=== PATIENT | female | born 1935 | race Caucasian/White ===

== ENCOUNTER 2024-02-07 09:14 | Inpatient (IN) | payer OTHER, BC ==
[2024-02-07 09:33] VITALS: BMI 24.0
[2024-02-07 10:45] LABS: BASO % 0.5 % (0-2.0); EOS % 0.8 % (0-4.5); HEMOGLOBIN 13.2 GM/dL (10.7-15.3); LYMPH % 10.9 % (8-40); MCH 30.9 pg (25.7-33.7); MCHC 32.1 g/dl (32.0-36.0); MEAN PLT VOLUME 8.6 fl (7.5-11.1); MONO % 8.3 % (3.8-10.2); NEUT % 79.5 % (42.8-82.8); PLATELET COUNT 183 10^3/uL (134-434); RBC 4.27 M/mm3 (3.60-5.2); RDW 14.2 % (11.6-15.6); WHITE BLOOD COUNT 7.6 K/mm3 (4.0-10.0)
[2024-02-07 10:49] LABS: INR 1.04 (0.83-1.09); PROTHROMBIN TIME (PATIENT) 12.1 SEC (9.7-13.0)
[2024-02-07 10:51] LABS: ACTIVATED PTT 30.3 SECONDS (25.2-36.5)
[2024-02-07 10:59] LABS: POTASSIUM 3.8 mmol/L (3.5-5.1)
[2024-02-07 11:01] LABS: CALCIUM 9.3 mg/dL (8.5-10.1)
[2024-02-07 11:02] LABS: ALBUMIN 3.7 g/dl (3.4-5.0); BLOOD UREA NITROGEN 22.1 mg/dL (7-18)
[2024-02-07 11:05] LABS: CREATININE 0.9 mg/dL (0.55-1.3)
[2024-02-07 11:06] LABS: BILIRUBIN,TOTAL 0.6 mg/dL (0.2-1); TOT PROT 6.7 g/dl (6.4-8.2)
[2024-02-07] MEDS ORDERED: ACETAMINOPHEN INJECTION 100 ML IVPB ONE (11:12)
[2024-02-07] MEDS: ACETAMINOPHEN 1000 MG/100 ML BAG IVPB ONE (11:12)
[2024-02-07] MEDS: morphine CARPU-JECT 2 MG/1 ML DISP.SYRIN IVPUSH ONE (14:06)
[2024-02-07 16:16] LABS: N-TERMINAL BNP 549.7 pg/ml (5-450)
[2024-02-07] MEDS: LORazepam 2 MG/ML SDV VIAL IVPUSH ONE (18:28)
[2024-02-07] MEDS: PANTOPRAZOLE 40 MG TABLET PO SCH (18:28)
[2024-02-07] MEDS: CARBIDOPA/LEVODOPA 25/100 TABLET (FP) PO SCH (18:28)
[2024-02-07] MEDS: D5-1/2NS+10 MEQ KCL - 10 MEQ/1,000 ML INFUS.BAG IV SCH (18:28)
[2024-02-07] MEDS: traMADol HCL 50 MG TABLET PO PRN (18:28)
[2024-02-07] MEDS: INSULIN ASPART SLIDING SCALE (NOVOLOG) 1 VIAL SQ SCH (18:31)
[2024-02-07] MEDS: PNEUMOC 20-VAL CONJ-DIP CRM/PF 0.5 ML SYRINGE IM ONE (21:28)
[2024-02-07] MEDS: SACUBITRIL/VALSARTAN 97 MG-103 MG TABLET PO SCH (21:30)
[2024-02-07] MEDS: ATORVASTATIN CA 20 MG TABLET (FP) PO SCH (21:31)
[2024-02-07] MEDS: QUEtiapine FUMARATE 25 MG TABLET PO SCH (21:31)
[2024-02-07] MEDS: POLYETHYLENE GLYCOL (HEALTHYLAX) 3350 17 GM PACKET PO SCH (21:31)
[2024-02-07] MEDS: CARVEDILOL 12.5 MG TABLET (FP) PO SCH (21:31)
[2024-02-07] MEDS: DONEPEZIL HCL 5 MG TABLET (FP) PO SCH (21:31)
[2024-02-07] MEDS: DOCUSATE SODIUM 100 MG CAPSULE (FP) PO SCH (21:31)
[2024-02-07] MEDS ORDERED: CARVEDILOL 25 MG TABLET (FP) PO SCH (22:00)
[2024-02-07] MEDS ORDERED: CARBIDOPA/LEVODOPA 25/100 TABLET (FP) PO SCH (22:00)
[2024-02-07] MEDS ORDERED: CARVEDILOL 6.25 MG TABLET (FP) PO SCH ×2 (22:00)
[2024-02-08 08:58] LABS: BASO % 0.4 % (0-2.0); EOS % 1.5 % (0-4.5); HEMATOCRIT 38.1 % (32.4-45.2); HEMOGLOBIN 12.4 GM/dL (10.7-15.3); LYMPH % 9.5 % (8-40); MCH 31.3 pg (25.7-33.7); MCHC 32.5 g/dl (32.0-36.0); MEAN CELL VOLUME 96.3 fl (80-96); MEAN PLT VOLUME 8.5 fl (7.5-11.1); MONO % 11.3 % (3.8-10.2); NEUT % 77.3 % (42.8-82.8); PLATELET COUNT 160 10^3/uL (134-434); RBC 3.96 M/mm3 (3.60-5.2); RDW 14.2 % (11.6-15.6); WHITE BLOOD COUNT 7.9 K/mm3 (4.0-10.0)
[2024-02-08] MEDS: CHOLECALCIFEROL (VIT D3) 1,000 UNIT (25 MCG) TABLET PO SCH (09:14)
[2024-02-08 09:16] LABS: POTASSIUM 4.3 mmol/L (3.5-5.1)
[2024-02-08 09:25] LABS: BLOOD UREA NITROGEN 15.7 mg/dL (7-18); CALCIUM 8.8 mg/dL (8.5-10.1)
[2024-02-08 09:29] LABS: CREATININE 0.7 mg/dL (0.55-1.3)
[2024-02-08] MEDS ORDERED: SACUBITRIL/VALSARTAN 97 MG-103 MG TABLET PO SCH (10:00)
[2024-02-08] MEDS: ENOXAPARIN NA (PORCINE) 40 MG/0.4 ML DISP.SYRIN SQ SCH (13:58)
[2024-02-09] MEDS: ACETAMINOPHEN 325 MG TABLET (FP) PO PRN (06:00)
[2024-02-09 08:50] LABS: BASO % 0.4 % (0-2.0); EOS % 1.4 % (0-4.5); HEMATOCRIT 37.9 % (32.4-45.2); HEMOGLOBIN 12.3 GM/dL (10.7-15.3); MCH 31.2 pg (25.7-33.7); MCHC 32.5 g/dl (32.0-36.0); MEAN PLT VOLUME 8.6 fl (7.5-11.1); MONO % 11.7 % (3.8-10.2); NEUT % 75.5 % (42.8-82.8); PLATELET COUNT 170 10^3/uL (134-434); RBC 3.95 M/mm3 (3.60-5.2); RDW 14.3 % (11.6-15.6); WHITE BLOOD COUNT 7.7 K/mm3 (4.0-10.0)
[2024-02-09 09:06] LABS: POTASSIUM 4.3 mmol/L (3.5-5.1)
[2024-02-09 09:08] LABS: CALCIUM 9.2 mg/dL (8.5-10.1)
[2024-02-09 09:09] LABS: BLOOD UREA NITROGEN 15.4 mg/dL (7-18)
[2024-02-09 09:12] LABS: CREATININE 0.8 mg/dL (0.55-1.3)
[2024-02-11] MEDS: INSULIN ASPART SLIDING SCALE (NOVOLOG) 1 VIAL SQ SCH (06:43)
[2024-02-11 22:19] VITALS: RESP 20
[2024-02-12 06:12] VITALS: BP 144/84; PULSE 64; TEMP 98.4
== END 2024-02-12 13:24 | DRG 312 ==
LOC: JER 09:14 → JERBED 15:41 → OBSVTOIN 15:41 → J8W 16:50
PROVIDERS: ADMIT Internal Medicine; ATTEND Internal Medicine
DX: R55 Syncope and collapse (principal); S22.41XA Multiple fractures of ribs, right side, initial encounter for closed fracture; G20.A1 Parkinson's disease without dyskinesia, without mention of fluctuations; F03.90 Unspecified dementia, unspecified severity, without behavioral disturbance, psychotic disturbance, mood disturbance, and anxiety; E11.9 Type 2 diabetes mellitus without complications; I11.0 Hypertensive heart disease with heart failure; E78.5 Hyperlipidemia, unspecified; E86.0 Dehydration; I50.9 Heart failure, unspecified; W18.2XXA Fall in (into) shower or empty bathtub, initial encounter; Y93.E1 Activity, personal bathing and showering; Y92.89 Other specified places as the place of occurrence of the external cause; Y99.9 Unspecified external cause status
CPT/HCPCS: 0241U-QW; 36415; 70450-TC; 71045-TC-FY; 72125-TC; 72128-TC; 72131-TC; 72170-TC-FY; 72192-TC; 80048; 80053; 82962; 83036; 83880; 85025; 85610; 85730; 86850; 86900; 86901; 90677; 93005; 93010; 93306-TC; 93880-TC; 94010; 97116-GP; 97161-GP; 99285-25; G0009; J0131